=== PATIENT | female | born 1960 | race Caucasian/White ===

== ENCOUNTER → 2020-05-31 11:12 | Outpatient (BNVA) | payer OTHER, SELFPAY | PROVIDERS: PCP Internal Medicine; Referring Provider Internal Medicine; Visit Provider Hospitalist | DX: Z76.89 Persons encountering health services in other specified circumstances (principal) ==

== ENCOUNTER → 2020-06-15 15:18 | Outpatient (BNVA) | payer OTHER, SELFPAY | PROVIDERS: PCP Internal Medicine; Visit Provider Physician Assistant Medical | DX: Z76.89 Persons encountering health services in other specified circumstances (principal) | CPT/HCPCS: G0296 ==

== ENCOUNTER 2020-07-18 11:09 | Outpatient (REF) | payer OTHER, SELFPAY ==
--- NOTE | 2020-07-18 11:13 | CT_ITS ---
EXAMINATION: CT CHEST SCREENING CLINICAL INFORMATION: Nicotine dependence COMPARISON: None. TECHNIQUE: Multidetector volumetric CT imaging of the chest is performed without contrast using low dose technique. Additional 2D coronal and sagittal reformatted images and axial 3D maximum intensity projection (MIP) images are generated on the CT workstation. This CT examination was performed using dose optimization techniques as appropriate, variously including the following: *Automated exposure control *Adjustment of mA and/or kV according to patient size (this includes techniques or standardized protocols for targeted exams where dose is matched to indication/reason for exam; i.e. extremities or head) *Use of iterative reconstruction technique DLP: 71 mGy-cm FINDINGS: LUNGS: The lungs are well-expanded and clear of acute process. There are subpleural-based ground-glass attenuation, left lower lobe, best visualized on thick cuts, likely atelectasis. There is a 2 mm calcified nodule, right lower lobe, axial image 51/4. MEDIASTINUM: Thyroid lobes are symmetrical. The central trachea and the bronchi are widely patent. There are calcified lymph nodes in the right hilum. No abnormal enlarged noncalcified lymph nodes seen. Heart size and the great vessels are normal caliber. No pericardial effusion seen. PLEURA: There is no pleural effusion. No pleural mass or thickening. AXILLA: No lymphadenopathy. UPPER ABDOMEN: Visualized liver, spleen and bilateral adrenal glands are unremarkable. OSSEOUS STRUCTURES: No lytic or sclerotic process seen. There is mild spondylosis dorsal spine. CT/CT lung screening IMPRESSION: Punctate 2 mm calcified nodule, right lower lobe. Minimal subpleural atelectatic changes in the left lower lobe. ASSESSMENT: Lung-RADS category 2: Benign RECOMMENDATION: Low dose annual CT chest exam.
== END 2020-07-18 11:10 | disposition home or self-care (01) ==
LOC: HO.CT 11:09
PROVIDERS: Visit Provider Physician Assistant Medical
DX: Z12.2 Encounter for screening for malignant neoplasm of respiratory organs (principal); F17.210 Nicotine dependence, cigarettes, uncomplicated
CPT/HCPCS: 71271

== ENCOUNTER 2020-08-17 09:00 | Outpatient (REF) | payer OTHER, SELFPAY ==
--- NOTE | 2020-08-17 13:08 | PFT_ITS ---
FLOWS: FEV1 109% of predicted at 2.52 L. FVC 102% of predicted at 3.08 L. FEV1 to FVC ratio of 0.82. No bronchodilator response. LUNG VOLUMES: Total lung capacity 110% of predicted at 5.26 L. Residual volume 110% of predicted at 2.13 L. Slow vital capacity 111% of predicted at 3.13 L. Expiratory reserve volume 30% of predicted at 0.23 L. Diffusion capacity is normal. IMPRESSION: No obstructive or restrictive ventilatory defect. No bronchodilator response. Decreased expiratory reserve volume suggests extrathoracic restriction, likely secondary to abdominal obesity. Riley Watkins MD AP/MODL / [id number]
== END 2020-08-17 09:01 | disposition home or self-care (01) ==
LOC: HO.RESP 09:00
PROVIDERS: Visit Provider Hospitalist
DX: J45.909 Unspecified asthma, uncomplicated (principal)
CPT/HCPCS: 94060; 94727; 94729

== ENCOUNTER → 2020-08-31 14:05 | Outpatient (BNVA) | payer OTHER, SELFPAY | PROVIDERS: PCP Internal Medicine; Visit Provider Hospitalist ==

== ENCOUNTER → 2021-04-15 10:20 | Outpatient (BNVA) | payer OTHER, SELFPAY | PROVIDERS: PCP Internal Medicine; Visit Provider Hospitalist ==

== ENCOUNTER 2021-10-16 08:59 | Outpatient (REF) | payer OTHER, SELFPAY ==
--- NOTE | ~2021-10-16 | CT_ITS ---
EXAMINATION: CT CHEST SCREENING CLINICAL INFORMATION: 40 pack year history. Quit 1 year ago. COMPARISON: Previous exam June 2020 TECHNIQUE: Multidetector volumetric CT imaging of the chest is performed without contrast using low dose technique. Additional 2D coronal and sagittal reformatted images and axial 3D maximum intensity projection (MIP) images are generated on the CT workstation. This CT examination was performed using dose optimization techniques as appropriate, variously including the following: *Automated exposure control *Adjustment of mA and/or kV according to patient size (this includes techniques or standardized protocols for targeted exams where dose is matched to indication/reason for exam; i.e. extremities or head) *Use of iterative reconstruction technique DLP: 100 mGy-cm FINDINGS: LUNGS: The lungs are clear with no evidence of inflammation or nodules. MEDIASTINUM: There are right calcified lymph nodes The mediastinum is otherwise normal. PLEURA: There is no pleural effusion. No pleural mass or thickening. AXILLA: No lymphadenopathy. UPPER ABDOMEN: There is a 1.8 x 2.8 cm low-attenuation left adrenal lesion that is stable. The liver is low in attenuation suggestive of fatty infiltration. The spleen appears upper normal in size measuring at least 13 cm. There are small calcifications in the spleen. OSSEOUS STRUCTURES: Unremarkable. CT/CT lung screening IMPRESSION: Evidence of old granulomatous disease. ASSESSMENT: Lung-RADS category 2: Benign RECOMMENDATION: Annual low-dose chest CT follow-up recommended.
== END 2021-10-16 09:00 | disposition home or self-care (01) ==
LOC: HO.CT 08:59
PROVIDERS: PCP Internal Medicine; Visit Provider Physician Assistant Medical
DX: Z12.2 Encounter for screening for malignant neoplasm of respiratory organs (principal); Z87.891 Personal history of nicotine dependence
CPT/HCPCS: 71271

== ENCOUNTER 2021-11-11 09:59 | Outpatient (REF) | payer OTHER, SELFPAY ==
--- NOTE | 2021-11-11 14:58 | PFT_ITS ---
INDICATION: Asthma. SPIROMETRY: FEV1 to FVC 82% with an FEV1 of 2.57 L, which is 113% predicted. An FVC of 3.13 L, which is 105% predicted. No significant response to bronchodilators noted. Maximum voluntary ventilation 109% predicted. LUNG VOLUMES: Total lung capacity 102% predicted. DIFFUSION CAPACITY: DLCO 95% predicted. COMPARISONS: PFTs from 2020. IMPRESSION: No obstructive nor restrictive ventilatory defects identified. No significant response to bronchodilators noted. Normal maximum voluntary ventilation. Normal lung volumes except for decrease in the expiratory reserve volume secondary to elevated BMI. Diffusion capacity is within normal limits. When compared to 2020, there was a trend improvement in the FVC, a trend increase in the FEV1, a trend decrease in the total lung capacity, and a trend increase in the diffusion capacity. Clinical correlation warranted. MD CAT Pearson/MODDoron / [id number]
== END 2021-11-11 10:00 | disposition home or self-care (01) ==
LOC: HO.RESP 09:59
PROVIDERS: PCP Internal Medicine; Visit Provider Hospitalist
DX: J45.40 Moderate persistent asthma, uncomplicated (principal)
CPT/HCPCS: 94060; 94727; 94729

== ENCOUNTER → 2021-11-12 13:07 | Outpatient (BNVA) | payer OTHER, SELFPAY | PROVIDERS: PCP Internal Medicine; Visit Provider Hospitalist | DX: J45.909 Unspecified asthma, uncomplicated (principal) ==

== ENCOUNTER 2022-10-20 08:53 | Outpatient (REF) | payer OTHER, SELFPAY ==
--- NOTE | ~2022-10-20 | CT_ITS ---
EXAMINATION: CT CHEST SCREENING CLINICAL INFORMATION: Nicotine dependence, one pack per day for 40 years. COMPARISON: CT chest 10/16/2021. TECHNIQUE: Multidetector volumetric CT imaging of the chest is performed without contrast using low dose technique. Additional 2D coronal and sagittal reformatted images and axial 3D maximum intensity projection (MIP) images are generated on the CT workstation. This CT examination was performed using dose optimization techniques as appropriate, variously including the following: *Automated exposure control *Adjustment of mA and/or kV according to patient size (this includes techniques or standardized protocols for targeted exams where dose is matched to indication/reason for exam; i.e. extremities or head) *Use of iterative reconstruction technique DLP: 127 mGy-cm. FINDINGS: LUNGS: The lungs are well expanded and clear of acute pneumonic process. There are no pulmonary nodules, mass or consolidation. Mild atelectatic changes are seen in the lingula and the anterobasal segment left lower lobe. MEDIASTINUM: The heart size and great vessels are normal caliber. The ascending aorta measures 3.3 x 3.0 cm. No abnormal-sized mediastinal or hilar lymph nodes seen. No pericardial effusion seen. Central trachea and the bronchi widely patent. CORONARY ARTERY CALCIFICATION: None visualized on this study. PLEURA: There is no pleural effusion. No pleural mass or thickening. AXILLA: No lymphadenopathy. UPPER ABDOMEN: Visualized liver, spleen, pancreas and bilateral adrenal glands unremarkable. No radiopaque gallstones. OSSEOUS STRUCTURES: No aggressive lytic or sclerotic process seen. CT/CT lung screening IMPRESSION: Old granulomatous disease in right hilum. No pulmonary nodules seen. ASSESSMENT: Lung-RADS category 2: Benign. RECOMMENDATION: Low-dose annual CT chest.
== END 2022-10-20 08:54 | disposition home or self-care (01) ==
LOC: HO.CT 08:53
PROVIDERS: PCP Internal Medicine; Visit Provider Physician Assistant Medical
DX: Z12.2 Encounter for screening for malignant neoplasm of respiratory organs (principal); F17.210 Nicotine dependence, cigarettes, uncomplicated
CPT/HCPCS: 71271

== ENCOUNTER → 2022-12-23 09:38 | Outpatient (BNVA) | payer OTHER, SELFPAY | PROVIDERS: PCP Internal Medicine; Visit Provider Hospitalist ==

== ENCOUNTER → 2023-03-10 09:14 | Outpatient (REF) | payer OTHER, SELFPAY | LOC: HO.SL 09:14 | PROVIDERS: PCP Internal Medicine; Visit Provider Hospitalist | DX: G47.33 Obstructive sleep apnea (adult) (pediatric) (principal) | CPT/HCPCS: 95806 ==

== ENCOUNTER → 2023-03-10 09:49 | Outpatient (BNV) | payer OTHER, SELFPAY | PROVIDERS: PCP Internal Medicine; Visit Provider Internal Medicine | DX: G47.33 Obstructive sleep apnea (adult) (pediatric) (principal) | CPT/HCPCS: 95806 ==

== ENCOUNTER 2023-04-02 14:33 | Outpatient (AMB) | payer MEDICARE, SELFPAY ==
--- NOTE | 2023-04-02 14:42 | MHC.OFFVIS ---
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 Overall the patient has been doing well. She is very active with her work. She has been very busy. Unfortunately, she has not been able to quit smoking. She has had pulmonary nodules in the past and been followed closely. She has been using her rescue inhaler. She does not use it often. She denies any chest pains or significant shortness of breath. She does have an intermittent cough. 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 At that point she was unsure for was related to the Chantix but she was concerned with the passenger side effects of Chantix due to the proximity of that condition. So therefore she was prescribed Wellbutrin. She did pick up worker the prescription but she has not started yet because she was to read up on it. I did recommend that she started but to started 75 mg. In the meantime for cough with some congestion I do believe that starting her on Singulair may be a good option. Will plan to do some breathing studies and see if she needs any maintenance therapies them. In the meantime she is open to start the lung cancer screening program. 11/12/2021 the patient is here for pulmonary follow-up visit. Patient is doing better from a respiratory status. She did quit smoking which is been very helpful. She continues to be extremely busy with her work schedule. She has been significantly stressed but was able to quit smoking which is very reassuring. We did review her pulmonary function studies demonstrating some trend improvement in her all her numbers. The patient is only using a rescue inhaler. Has not really had to use a is the fact that his symptoms are significantly better. In addition to that we did review her CT scan of the chest demonstrating stable nodules. She will continue with lung cancer screening program and a yearly basis for now.In the meantime she was having stroke-like symptoms and she was taken to [facility]. 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 She then subsequently followed up with the surgery and [place] [facility] [place] She was recommended to undergo an angiogram. She is contemplating it. In addition to that she was evaluated by Neurosurgery for what appears to be a degenerative disc disease issue in her cervical area and they are recommending she undergo surgery. She is contemplating what she should do 1st. Apparently she is on aspirin and Plavix for her vertebral artery disease. She is not using any maintenance inhalers at this time. 12/23/2022 the patient is here for pulmonary follow-up visit. 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 She is having issues with her memory also with her coordination and her balance. She has had few falls. The patient is being evaluated in [place] for this. Currently no interventions are required except for medications. She did quit smoking which is reassuring. She is also having issues with daytime drowsiness. Her Athens score is elevated 11/24. The patient did have sleep apnea in the past and she had a machine around 15 years ago and she could not tolerated. Now with cerebrovascular disease and her elevated Athens score and her other constitutional symptoms it is important for her to have a repeat study. The patient is also having some difficulty swallowing. She is going to have her colonoscopy soon. She is going to talk to her GI doctor about either getting a barium swallow or doing both endoscopy and colonoscopy together. The patient also has some neuropathy issues. Primary cervical radiculopathy and also peripheral neuropathy. The patient may be a good candidate for Neurontin for sleep specially if she needs a sleep aid for tolerating CPAP at that point. 04/02/2023 the patient is here for a pulmonary follow-up visit. Since we last spoke the patient started developing a cold. Has a very deep cough. Croupy in nature. Now it has been sick for about 7 days. She tried the rescue inhaler but did not help too much. Her cough it is significant and again is D. She had called her primary care doctor was center medications to the pharmacy. In the meantime she continues to have daytime drowsiness. Athens score is worse 12/24. She did undergo a home sleep study which we personally reviewed together. She does have moderate sleep apnea and significant hypoxia spending more than left minutes below 88%. The patient needs to start CPAP therapy at this time. Will send a prescription to the local [employer] [facility]. The patient will come back in 3 months and she will bring her CPAP with her. In the meantime I do agree that she does have what appears to be laryngo tracheobronchitis. Will start her on azithromycin in addition to a Medrol pack. She also needs cough suppressant therapy. Her sleep is better overall. Will follow-up in 3 months time or if she is not better she can always call for an earlier assessment. [facility] Medical History (Updated 04/02/23 @ 19:49 by Reynold Craven MD) NICKY (obstructive sleep apnea) Pulmonary nodules Tobacco dependence Asthma Family History (Updated 05/31/20 @ 17:19 by Reynold Craven MD) Other Asthma Social History (Updated 11/12/21 @ 13:16 by Ely Pacheco [facility]) Alcohol intake: current Alcohol intake frequency: holidays/special occasions only Alcohol type: wine Patient Tobacco Use Status: Former Tobacco user Tobacco use type: Cigarette Years Smoked: 30 years Review of Systems Const Reports daytime sleepiness, Reports difficulty sleeping and Denies night sweats ENT Denies change in voice, Denies lip swelling, Denies mouth pain, Reports nasal congestion, Reports nasal discharge and Denies tongue swelling Card Denies chest pain Resp Reports chest congestion and Reports cough GI Denies abdominal pain Musc Denies no additional complaints, Reports abnormal gait and Reports tingling Neuro Reports no additional complaints, Denies Neuro-related abnormal movements, Reports abnormal gait, Reports tingling and Reports paresthesias Psych Denies no additional complaints Sylvain/Lymph Denies easy bleeding and Denies lymphadenopathy Aller/Immun Denies lip swelling and Denies tongue swelling Physical Exam Vital Signs: Last Vital Signs Pulse 83 04/02/23 14:44 Pulse Ox 96 04/02/23 14:44 Oxygen Delivery Method Room Air 04/02/23 14:44 BMI result Body Mass Index 35.4 Const General: alert Neck Neck: Yes normal visual inspection, Yes full ROM and Yes no lymphadenopathy Chest Chest palpation & inspection: normal inspection of the chest Resp Effort & Inspection: Actively coughing Quality: actively coughing Auscultation: diminished lung sounds Cardio Rate: regular rate Rhythm: regular rhythm Heart sounds: S1 normal heart sound present and S2 normal heart sound present GI Palpation (GI): Soft to palpation and nontender Auscultation: normal bowel sounds General: Yes no CVA tenderness Back/Spine/Pelvis Back: no CVA tenderness Skin General skin exam: rashes and/or lesions noted Assessment & Plan Assessment & Plan (1) Tracheobronchitis: Code(s): J40 - Bronchitis, not specified as acute or chronic (2) Asthma: Code(s): J45.909 - Unspecified asthma, uncomplicated Qualifiers: Asthma complication type: uncomplicated Asthma persistence: persistent Asthma severity: moderate Qualified Code(s): J45.40 - Moderate persistent asthma, uncomplicated (3) Pulmonary nodules: Code(s): R91.8 - Other nonspecific abnormal finding of lung field (4) Nicotine dependence, cigarettes, uncomplicated: Comment: Quit (onset 13yo, 1/2-1ppd x 47yrs, 35pyh) Code(s): F17.210 - Nicotine dependence, cigarettes, uncomplicated (5) NICKY (obstructive sleep apnea): Code(s): G47.33 - Obstructive sleep apnea (adult) (pediatric) Plan Continue respiratory therapy with [facility] as needed. Lung cancer screening program, LDCT 09/2023 start APAP Medrol taper Azithromycin x 5 days cough medicine quit smoking F/U 3 months Medications: New methylprednisolone (Medrol ([place])) 4 mg PO DAILY 6 days 6 ea 0RF azithromycin 500 mg PO DAILY 5 days 5 tabs 0RF codeine-guaifenesin 10-100 mg/5 mL 10 mL PO Q6H 10 days PRN 300 mL 0RF cough Quality Reporting (2019) Adult ([facility] 138/08/20/68) Smoking risk assessment performed?: Yes Patient Tobacco Use Status: Former Tobacco user Coding Level of Care Code Est Pt Level 4 (93701) Diagnoses Tracheobronchitis J40 Moderate persistent asthma without complication J45.40 Asthma complication type: uncomplicated Asthma persistence: persistent Asthma severity: moderate Pulmonary nodules R91.8 Nicotine dependence, cigarettes, uncomplicated F17.210 NICKY (obstructive sleep apnea) G47.33 Time Spent (min) 17
[2023-04-02 14:44] VITALS: PULSE 83; O2SAT 96; BMI 35.4
== END 2023-04-02 15:05 | disposition home or self-care (01) ==
PROVIDERS: PCP Internal Medicine; Visit Provider Hospitalist
DX: J40 Bronchitis, not specified as acute or chronic (principal); J45.40 Moderate persistent asthma, uncomplicated; R91.8 Other nonspecific abnormal finding of lung field; F17.210 Nicotine dependence, cigarettes, uncomplicated; G47.33 Obstructive sleep apnea (adult) (pediatric)
CPT/HCPCS: 99214

== ENCOUNTER → 2023-04-02 14:33 | Outpatient (BNVA) | payer MEDICARE, SELFPAY | PROVIDERS: PCP Internal Medicine; Visit Provider Hospitalist | DX: J45.40 Moderate persistent asthma, uncomplicated (principal); J40 Bronchitis, not specified as acute or chronic; R91.8 Other nonspecific abnormal finding of lung field; G47.33 Obstructive sleep apnea (adult) (pediatric); Z87.891 Personal history of nicotine dependence | CPT/HCPCS: 99212 ==

== ENCOUNTER 2023-06-30 09:33 | Outpatient (AMB) | payer MEDICARE, SELFPAY ==
--- NOTE | 2023-06-30 09:38 | A.OFFVIS_ITS ---
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 Overall the patient has been doing well. She is very active with her work. She has been very busy. Unfortunately, she has not been able to quit smoking. She has had pulmonary nodules in the past and been followed closely. She has been using her rescue inhaler. She does not use it often. She denies any chest pains or significant shortness of breath. She does have an intermittent cough. 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 At that point she was unsure for was related to the Chantix but she was concerned with the passenger side effects of Chantix due to the proximity of that condition. So therefore she was prescribed Wellbutrin. 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 I did recommend that she started but to started 75 mg. In the meantime for cough with some congestion I do believe that starting her on Singulair may be a good option. Will plan to do some breathing studies and see if she needs any maintenance therapies them. In the meantime she is open to start the lung cancer screening program. 11/12/2021 the patient is here for pulmonary follow-up visit. Patient is doing better from a respiratory status. She did quit smoking which is been very helpful. She continues to be extremely busy with her work schedule. She has been significantly stressed but was able to quit smoking which is very reassuring. We did review her pulmonary function studies demonstrating some trend improvement in her all her numbers. The patient is only using a rescue inhaler. Has not really had to use a is the fact that his symptoms are significantly better. In addition to that we did review her CT scan of the chest demonstrating stable nodules. She will continue with lung cancer screening program and a yearly basis for now.In the meantime she was having stroke-like symptoms and she was taken to [facility]. 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 She then subsequently followed up with the surgery and ultimately went back to [facility]. She was recommended to undergo an angiogram. She is contemplating it. In addition to that she was evaluated by Neurosurgery for what appears to be a degenerative disc disease issue in her cervical area and they are recommending she undergo surgery. She is contemplating what she should do 1st. Apparently she is on aspirin and Plavix for her vertebral artery disease. She is not using any maintenance inhalers at this time. 12/23/2022 the patient is here for pulluly proctor follow-up visit. 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 She is having issues with her memory also with her coordination and her balance. She has had few falls. The patient is being evaluated in [place] for this. Currently no interventions are required except for medications. She did quit smoking which is reassuring. She is also having issues with daytime drowsiness. Her Landers score is elevated 11/24. The patient did have sleep apnea in the past and she had a machine around 15 years ago and she could not tolerated. Now with cerebrovascular disease and her elevated Landers score and her other constitutional symptoms it is important for her to have a repeat study. The patient is also having some difficulty swallowing. She is going to have her colonoscopy soon. She is going to talk to her GI doctor about either getting a barium swallow or doing both endoscopy and colonoscopy together. The patient also has some neuropathy issues. Primary cervical radiculopathy and also peripheral neuropathy. The patient may be a good candidate for Neurontin for sleep specially if she needs a sleep aid for tolerating CPAP at that point. 04/02/2023 the patient is here for a [place] follow-up visit. Since we last spoke the patient started developing a cold. Has a very deep cough. Croupy in nature. Now it has been sick for about 7 days. She tried the rescue inhaler but did not help too much. Her cough it is significant and again is D. She had called her primary care doctor was center medications to the pharmacy. In the meantime she continues to have daytime drowsiness. Landers score is worse 12/24. She did undergo a home sleep study which we personally reviewed together. She does have moderate sleep apnea and significant hypoxia spending more than left minutes below 88%. The patient needs to start CPAP therapy at this time. Will send a prescription to the local [employer] company. The patient will come back in 3 months and she will bring her CPAP with her. In the meantime I do agree that she does have what appears to be laryngo tracheobronchitis. Will start her on azithromycin in addition to a Medrol pack. She also needs cough suppressant therapy. Her sleep is better overall. Will follow-up in 3 months time or if she is not better she can always call for an earlier assessment. 06/30/2023 the patient is here for a pulmo [place] follow-up visit. Overall the patient is doing very well. She recently underwent surgery for a growth on her ankle and also in her chest area. Surgery went well she tolerated anesthesia well. She continues use her rescue inhaler but typically less than 2 times a month. The patient has been doing well from a respiratory status. She also started the CPAP therapy. CPAP therapy has been affecting beneficial. The patient has been using it more than 4 hours a night although she did go away for a few days recently and did not take the machine with her. Her AHI is down to 0.9 and a mean pressure is around 9 cm of water. Her current settings are perfect. She will continue using the F30 mask. The patient is responding very well to the therapy. Her snoring and daytime sleepiness has improved dramatically with an Landers score of 5/24. Otherwise patient is doing well she does have a lung cancer screening CT scan September 2023. Will follow P year's time or sooner if she develops any new issues. [facility] Medical History (Updated 04/02/23 @ 19:49 by Reynold Craven MD) NICKY (obstructive sleep apnea) Pulmonary nodules Tobacco dependence Asthma Family History (Updated 05/31/20 @ 17:19 by Reynold Craven MD) Other Asthma Social History (Updated 11/12/21 @ 13:16 by JOANIE Pereira) Alcohol intake: current Alcohol intake frequency: holidays/special occasions only Alcohol type: wine Patient Tobacco Use Status: Former Tobacco user Tobacco use type: Cigarette Years Smoked: 30 years Review of Systems Const Denies daytime sleepiness, Denies difficulty sleeping and Denies night sweats ENT Denies change in voice, Denies lip swelling, Denies mouth pain, Reports nasal congestion, Reports nasal discharge and Denies tongue swelling Card Denies chest pain Resp Denies chest congestion and Reports cough GI Denies abdominal pain Musc Denies no additional complaints, Reports abnormal gait and Reports tingling Neuro Reports no additional complaints, Denies Neuro-related abnormal movements, Reports abnormal gait, Reports tingling and Reports paresthesias Psych Denies no additional complaints Sylvain/Lymph Denies easy bleeding and Denies lymphadenopathy Aller/Immun Denies lip swelling and Denies tongue swelling Physical Exam Vital Signs: Last Vital Signs Pulse 82 06/30/23 09:39 Pulse Ox 95 06/30/23 09:39 Oxygen Delivery Method Room Air 06/30/23 09:39 BMI result Body Mass Index 35.4 Const General: alert Neck Neck: Yes normal visual inspection, Yes full ROM and Yes no lymphadenopathy Chest Chest palpation & inspection: normal inspection of the chest Resp Auscultation: clear to auscultation bilaterally Cardio Rate: regular rate Rhythm: regular rhythm Heart sounds: S1 normal heart sound present and S2 normal heart sound present GI Palpation (GI): Soft to palpation and nontender Auscultation: normal bowel sounds General: Yes no CVA tenderness Back/Spine/Pelvis Back: no CVA tenderness Skin General skin exam: rashes and/or lesions noted Assessment & Plan Assessment & Plan (1) Asthma: Code(s): J45.909 - Unspecified asthma, uncomplicated Qualifiers: Asthma severity: moderate Asthma persistence: persistent Asthma complication type: uncomplicated Qualified Code(s): J45.40 - Moderate persistent asthma, uncomplicated (2) Pulmonary nodules: Code(s): R91.8 - Other nonspecific abnormal finding of lung field (3) Nicotine dependence, cigarettes, uncomplicated: Comment: Quit (onset 13yo, 1/2-1ppd x 47yrs, 35pyh) Code(s): F17.210 - Nicotine dependence, cigarettes, uncomplicated (4) NICKY (obstructive sleep apnea): Code(s): G47.33 - Obstructive sleep apnea (adult) (pediatric) Plan Continue respiratory therapy with EMILIA as needed. Lung cancer screening program, LDCT 09/2023 continue APAP 6-16, F30 quit smoking >2 yrs F/U 12 months Quality Reporting (2019) Adult ([facility] 138/2//69) Smoking risk assessment performed?: Yes Patient Tobacco Use Status: Former Tobacco user Coding Level of Care Code Est Pt Level 4 (72071) Diagnoses Moderate persistent asthma without complication J45.40 Asthma severity: moderate Asthma persistence: persistent Asthma complication type: uncomplicated Pulmonary nodules R91.8 Nicotine dependence, cigarettes, uncomplicated F17.210 NICKY (obstructive sleep apnea) G47.33 Time Spent (min) 16
[2023-06-30 09:39] VITALS: PULSE 82; O2SAT 95; BMI 35.4
== END 2023-06-30 10:55 | disposition home or self-care (01) ==
PROVIDERS: PCP Internal Medicine; Visit Provider Hospitalist
DX: J45.40 Moderate persistent asthma, uncomplicated (principal); R91.8 Other nonspecific abnormal finding of lung field; F17.210 Nicotine dependence, cigarettes, uncomplicated; G47.33 Obstructive sleep apnea (adult) (pediatric)
CPT/HCPCS: 99214

== ENCOUNTER → 2023-06-30 09:33 | Outpatient (BNVA) | payer MEDICARE, SELFPAY | PROVIDERS: PCP Internal Medicine; Visit Provider Hospitalist | DX: J45.40 Moderate persistent asthma, uncomplicated (principal); R91.8 Other nonspecific abnormal finding of lung field; G47.33 Obstructive sleep apnea (adult) (pediatric); Z87.891 Personal history of nicotine dependence | CPT/HCPCS: 99212 ==

== ENCOUNTER 2024-03-03 08:08 | Outpatient (REF) | payer MEDICARE, SELFPAY ==
--- NOTE | ~2024-03-03 | CT_ITS ---
EXAMINATION: CT CHEST LOW-DOSE SCREENING WITHOUT CONTRAST CLINICAL INFORMATION: Asymptomatic patient meeting criteria for lung screening. Nicotine dependence. PATIENT PACK-YEAR HISTORY: 40. Current Smoker: No. If former smoker, years since quittin. COMPARISON: None available. TECHNIQUE: Multidetector volumetric non-contrast CT imaging of the chest was obtained on a Siemens SOMATON Definition scanner using low-dose screening CT technique. Axial thin section 0.625 mm reformations in soft tissue and lung windows were obtained. Sagittal and coronal reformations were obtained. Axial MIP images were also created and reviewed. RECONSTRUCTED WIDTH: 1.25 mm x 1.[address] examination was performed using dose optimization techniques as appropriate, variously including the following: *Automated exposure control. *Adjustment of mA and/or kV according to patient size (this includes techniques or standardized protocols for targeted exams where dose is matched to indication/reason for exam; i.e. extremities or head). *Use of iterative reconstruction technique. TOTAL EXAM DLP: 75 mGy-cm CTDIvol: 2.22 mGy FINDINGS: LUNGS: Lungs bilaterally symmetrically expanded. Some mild emphysema is present along with mild bronchial thickening. No concerning focal lung nodule or mass. No effusion or pneumothorax. Central airways patent. LYMPHATIC STRUCTURES: Calcified right hilar lymph nodes are present, unchanged from prior. No mediastinal, hilar or axillary adenopathy or free fluid collection. THYROID GLAND: Unremarkable to the extent seen. CARDIOVASCULAR STRUCTURES: Aortic and heart size normal. Trace coronary artery calcifications. No pericardial effusion. UPPER ABDOMEN: There is hepatic steatosis present. Multiple calcified splenic granulomas are seen and the spleen is mildly enlarged at 13 cm. Included portions of the solid organs in the upper abdomen are unremarkable on noncontrast imaging. OSSEOUS STRUCTURES: No suspicious focal findings. SPINAL COMPRESSION: Absent. CT/CT lung screening IMPRESSION: No findings suspicious for malignancy/pulmonary nodule(s)/other. LUNG-RADS CATEGORY ASSESSMENT: 1: Negative. INCIDENTAL FINDINGS (S CATEGORY): Finding: No incidental findings. Significance Category: Normal or normal variant. RECOMMENDATION: Low dose lung CT. overall in 1 year. Visual estimate of coronary calcified plaque burden: Trace. However, this exam cannot replace a dedicated cardiac CT calcium score for accurate assessment. Electronically signed by: Waldemar Manley MD 03/04/2024 09:39 PM EDT
== END 2024-03-03 08:09 | disposition home or self-care (01) ==
LOC: HO.CT 08:08
PROVIDERS: PCP Internal Medicine; Visit Provider Nurse Practitioner Family
DX: Z12.2 Encounter for screening for malignant neoplasm of respiratory organs (principal); F17.210 Nicotine dependence, cigarettes, uncomplicated
CPT/HCPCS: 71271

== ENCOUNTER 2024-07-26 08:37 | Outpatient (AMB) | payer MEDICARE, SELFPAY ==
--- NOTE | 2024-07-26 08:44 | A.OFFVIS_ITS ---
Vital Signs 07/26/24 08:45 Height 5 ft 3 in Weight 221 lb 9.033 oz BMI 39.2 BP 120/84 Blood Pressure Location Rt brachial Position Sitting Pulse 80 Pulse Source Pulse Oximeter Pulse Oximetry (%) 94 Oxygen Delivery Method Room Air Intake Visit Reasons: asthma Allergies No Known Allergies Allergy (Verified 07/26/24 08:49) HPI Comments Details: The patient is a 64 year-old woman with a known history of asthma and tobacco dependency. Overall the patient has been doing well. She is very active with her work. She has been very busy. Unfortunately, she has not been able to quit smoking. She has had pulmonary nodules in the past and been followed closely. She has been using her rescue inhaler. She does not use it often. She denies any chest pains or significant shortness of breath. She does have an intermittent cough. 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 At that point she was unsure for was related to the Chantix but she was concerned with the passenger side effects of Chantix due to the proximity of that condition. So therefore she was prescribed Wellbutrin. 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 I did recommend that she started but to started 75 mg. In the meantime for cough with some congestion I do believe that starting her on Singulair may be a good option. Will plan to do some breathing studies and see if she needs any maintenance therapies them. In the meantime she is open to start the lung cancer screening program. 11/12/2021 the patient is here for pulmonary follow-up visit. Patient is doing better from a respiratory status. She did quit smoking which is been very helpful. She continues to be extremely busy with her work schedule. She has been significantly stressed but was able to quit smoking which is very reassuring. We did review her pulmonary function studies demonstrating some trend improvement in her all her numbers. The patient is only using a rescue inhaler. Has not really had to use a is the fact that his symptoms are significantly better. In addition to that we did review her CT scan of the chest demonstrating stable nodules. She will continue with lung cancer screening program and a yearly basis for now.In the meantime she was having stroke-like symptoms and she was taken to [facility]. 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 She then subsequently followed up with the surgery and ultimately went back to [facility]. She was recommended to undergo an angiogram. She is contemplating it. In addition to that she was evaluated by Neurosurgery for what appears to be a degenerative disc disease issue in her cervical area and they are recommending she undergo surgery. She is contemplating what she should do 1st. Apparently she is on aspirin and Plavix for her vertebral artery disease. She is not using any maintenance inhalers at this time. 12/23/2022 the patient is here for pulmonary follow-up visit. 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 She is having issues with her memory also with her coordination and her balance. She has had few falls. The patient is being evaluated in [place] for this. Currently no interventions are required except for medications. She did quit smoking which is reassuring. She is also having issues with daytime drowsiness. Her Scott score is elevated 11/24. The patient did have sleep apnea in the past and she had a machine around 15 years ago and she could not tolerated. Now with cerebrovascular disease and her elevated Scott score and her other constitutional symptoms it is important for her to have a repeat study. The patient is also having some difficulty swallowing. She is going to have her colonoscopy soon. She is going to talk to her GI doctor about either getting a barium swallow or doing both endoscopy and colonoscopy together. The patient also has some neuropathy issues. Primary cervical radiculopathy and also peripheral neuropathy. The patient may be a good candidate for Neurontin for sleep specially if she needs a sleep aid for tolerating CPAP at that point. 04/02/2023 the patient is here for a pulmonary follow-up visit. Since we last spoke the patient started developing a cold. Has a very deep cough. Croupy in nature. Now it has been sick for about 7 days. She tried the rescue inhaler but did not help too much. Her cough it is significant and again is D. She had called her primary care doctor was center medications to the pharmacy. In the meantime she continues to have daytime drowsiness. Scott score is worse 12/24. She did undergo a home sleep study which we personally reviewed together. She does have moderate sleep apnea and significant hypoxia spending more than left minutes below 88%. The patient needs to start CPAP therapy at this time. Will send a prescription to the local [employer] company. The patient will come back in 3 months and she will bring her CPAP with her. In the meantime I do agree that she does have what appears to be laryngo tracheobronchitis. Will start her on azithromycin in addition to a Medrol pack. She also needs cough suppressant therapy. Her sleep is better overall. Will follow-up in 3 months time or if she is not better she can always call for an earlier assessment. 06/30/2023 the patient is here for a pulmonary follow-up visit. Overall the patient is doing very well. She recently underwent surgery for a growth on her ankle and also in her chest area. Surgery went well she tolerated anesthesia well. She continues use her rescue inhaler but typically less than 2 times a month. The patient has been doing well from a respiratory status. She also started the CPAP therapy. CPAP therapy has been affecting beneficial. The patient has been using it more than 4 hours a night although she did go away for a few days recently and did not take the machine with her. Her AHI is down to 0.9 and a mean pressure is around 9 cm of water. Her current settings are perfect. She will continue using the F30 mask. The patient is responding very well to the therapy. Her snoring and daytime sleepiness has improved dramatically with an Scott score of 5/24. Otherwise patient is doing well she does have a lung cancer screening CT scan September 2023. Will follow P year's time or sooner if she develops any new issues. 07/26/2024 the patient is here for a pulmonary follow-up visit. Overall she is doing well. She has been having issues with her neck pain. She was recommended surgery but she really does want have surgery because she is high risk. The patient does consider other modalities. I did give her information about physiatry. As the nonsurgical modality that she can look into further. In the meantime she needs to start using her CPAP again CPAP therapy is very affecting beneficial for her. Although she stopped using it after she got back from a trip and also because of her neck pain. Although she does feel better when she uses her CPAP. Therefore she will go back to using it. She does have a rescue inhaler although she does not really needed. She also had a CAT scan part of the lung cancer screening program back in 03/18/2024 which I personally reviewed. She continues to have some calcifications of the hilar lymph nodes on the right. This are chronic and she has had them for long time. Likely secondary to a previous infection she lived in [place] for sometimes therefore at risk for endemic fungal infections such as coccidiomycosis. Otherwise patient is doing well will follow-up in a year if he in issues arise prior to that she will call for an earlier assessment. [facility] Medical History (Updated 04/02/23 @ 19:49 by Reynold Craven MD) NICKY (obstructive sleep apnea) Pulmonary nodules Tobacco dependence Asthma Family History (Updated 05/31/20 @ 17:19 by Reynold Craven MD) Other Asthma Social History Alcohol intake: current Alcohol intake frequency: holidays/special occasions only Alcohol type: wine Patient Tobacco Use Status: Former Tobacco user Tobacco use type: Cigarette Years Smoked: 30 years Review of Systems Const Denies daytime sleepiness, Denies difficulty sleeping and Denies night sweats ENT Denies change in voice, Denies lip swelling, Denies mouth pain, Reports nasal congestion, Reports nasal discharge, Reports neck pain and Denies tongue swelling Card Denies chest pain Resp Denies chest congestion and Reports cough GI Denies abdominal pain Musc Denies no additional complaints, Reports back pain, Reports neck pain and Reports tingling Neuro Reports no additional complaints, Denies Neuro-related abnormal movements, Reports tingling and Reports paresthesias Psych Denies no additional complaints Sylvain/Lymph Denies easy bleeding and Denies lymphadenopathy Aller/Immun Denies lip swelling and Denies tongue swelling Physical Exam Vital Signs: Last Vital Signs Pulse 80 07/26/24 08:45 BP 120/84 07/26/24 08:45 Pulse Ox 94 07/26/24 08:45 Oxygen Delivery Method Room Air 07/26/24 08:45 BMI result Body Mass Index 39.2 Const General: alert Neck Neck: Yes normal visual inspection, Yes full ROM and Yes no lymphadenopathy Chest Chest palpation & inspection: normal inspection of the chest Resp Auscultation: clear to auscultation bilaterally Cardio Rate: regular rate Rhythm: regular rhythm Heart sounds: S1 normal heart sound present and S2 normal heart sound present GI Palpation (GI): Soft to palpation and nontender Auscultation: normal bowel sounds General: Yes no CVA tenderness Back/Spine/Pelvis Back: no CVA tenderness Skin General skin exam: rashes and/or lesions noted Quality Reporting (2019) Adult ([facility] 138/08/20/68) Smoking risk assessment performed?: Yes Patient Tobacco Use Status: Former Tobacco user Assessment & Plan Assessment & Plan (1) Asthma: Code(s): J45.909 - Unspecified asthma, uncomplicated Category: Medical Qualifiers: Asthma complication type: uncomplicated Asthma persistence: persistent Asthma severity: moderate Qualified Code(s): J45.40 - Moderate persistent asthma, uncomplicated (2) Pulmonary nodules: Code(s): R91.8 - Other nonspecific abnormal finding of lung field Category: Medical (3) Nicotine dependence, cigarettes, uncomplicated: Comment: Quit (onset 13yo, 1/2-1ppd x 47yrs, 35pyh) Code(s): F17.210 - Nicotine dependence, cigarettes, uncomplicated Category: Medical (4) NICKY (obstructive sleep apnea): Code(s): G47.33 - Obstructive sleep apnea (adult) (pediatric) Category: Medical Plan Continue respiratory therapy with EMILIA as needed. Lung cancer screening program, LDCT 09/2024 continue APAP 6-16, F30 quit smoking >4 yrs F/U 12 months Coding Level of Care Code Est Pt Level 4 (38565) Diagnoses Moderate persistent asthma without complication J45.40 Asthma complication type: uncomplicated Asthma persistence: persistent Asthma severity: moderate Pulmonary nodules R91.8 Nicotine dependence, cigarettes, uncomplicated F17.210 NICKY (obstructive sleep apnea) G47.33 Time Spent (min) 17
[2024-07-26 08:45] VITALS: BP 120/84; PULSE 80; O2SAT 94; BMI 39.2
--- OUTSIDE RECORDS SUMMARY | 2024-07-26 08:56 | XMS_ITS | Clinical Summary ---
Author Organization [facility] Address [address] [place] [address] Phone Care Team Providers Care Intranet Specialist Name Role Phone John Sharp MD Primary Care Provider Encounters Date Type Department Care Team Description 05/29/2024 8:41 AM EST - 05/29/2024 11:59 PM EST Hospital Encounter [facility] MRI [address] [place] [id number] Neuropathy Discharge Disposition: Home or Self Care from Last 3 Months Social History Tobacco Use Types Packs/Day Years Used Date Smoking Tobacco: Former Sex and Gender Information Value Date Recorded Sex Assigned at Female 01/21/2023 8:00 AM EDT Gender Identity Female 01/21/2023 8:00 AM EDT Sexual Orientation Not on file Job Start Date Occupation Industry Not on file Not on file Not on file Obstetrics History Plan of Treatment Health Maintenance Due Date Last Done Comments Breast Cancer Screening 1960 DTaP,Tdap,and Td Vaccines (1 - Tdap) 1977 Cholesterol Screening (Lipid Panel) 05/27/2022 Colorectal Cancer Screening: Colonoscopy 05/27/2022 Depression Screening 05/27/2022 Hepatitis C Screening 05/27/2022 Medicare Annual Wellness Visit 05/27/2022 Osteoporosis Screening (Bone Density Screening) 05/27/2022 Social Influencers of Health Screening 05/27/2022 Falls Risk Assessment 2023 COVID-19 Vaccine ( season) 2024 03/20/2022, 12/04/2021, 04/11/2021, Additional history exists Influenza Vaccine (#1) 2024 , 05/18/2021, 05/24/2018, Additional history exists Hypertension/CHF/CAD Annual BMP Blood Test 03/05/2025 03/05/2024 RSV Immunization Patients 60+ Years Old (1 - 1-dose 75+ series) 2033 Zoster Vaccines Completed 03/26/2022, 12/04/2021 Pneumococcal Vaccine: 65+ Years Completed 04/28/2023, 07/21/2020 HIB Vaccines Aged Out No longer eligi ble based on patient's age to complete this topic HPV Vaccines Aged Out No longer eligi ble based on patient's age to complete this topic Hepatitis A Vaccines Aged Out No long er eligible based on patient's age to complete this topic Hepatitis B Vaccines Aged Out No long er eligible based on patient's age to complete this topic IPV Vaccines Aged Out No longer eligi ble based on patient's age to complete this topic MMR Vaccines Aged Out No longer eligi ble based on patient's age to complete this topic Meningococcal ACWY Vaccine Aged Out N o longer eligible based on patient's age to complete this topic RSV Immunization Patients Under 20 months Aged Out No longer eligible based on patient's age to complete this topic Varicella Vaccines Aged Out No longer eligible based on patient's age to complete this topic Procedures Procedure Name Priority Date/Time Associated Diagnosis Comments MR CERVICAL SPINE WO CONTRAST Routine 05/29/2024 9:46 AM EST Neuropathy from Last 3 Months Results * MR Cervical Spine wo Contrast (05/29/2024 9:46 AM EST) Anatomical Region Laterality Modality C-spine, Spine Magnetic Resonan ce 05/30/2024 1:38 PM EST Impressions 05/30/2024 1:45 PM EST Multilevel degenerative changes are noted and are detailed fully above. -------- FINAL REPORT -------- Dictated By: Kuldip Hong Dictated Date: 05/30/2024 13:38 ET Assigned Physician: Kuldip Hong Reviewed and Electronically Signed By: Kuldip Hong Signed Date: 05/30/2024 13:45 ET Workstation ID: [id number] Transcribed By: Self Edit Transcribed Date: 05/30/2024 13:38 ET Narrative 05/30/2024 1:45 PM EST MRI of the cervical spine without contrast INDICATION: Cervicalgia COMPARISON: MRI cervical spine January 2022 TECHNIQUE: Multiple MRI sequences were performed of the cervical spine without contrast. FINDINGS: Bones: No acute deformity. ??Mild degenerative endplate edema is noted at C4-5. Alignment: Training of cervical lordosis is likely partially due to positioning and partially due to degenerative changes. Spinal cord: Cord appears normal in signal. Soft tissues: Soft tissues appear normal. Cervical Spine Levels C2-C3: Normal without evidence of significant stenosis. C3-C4: Normal without evidence of significant stenosis. C4-C5: Degenerative disc osteophyte with mild spinal canal stenosis. ??Degenerative changes cause moderate left and mild right-sided foraminal stenosis. C5-C6: Degenerative disc osteophyte with right paracentral disc protrusion. ??Findings cause at least mild spinal canal stenosis. ??There is contact on the cervical cord without irregular cord signal. ??Degenerative changes contribute to moderate bilateral foraminal stenosis. C6-C7: Degenerative disc osteophyte with mild spinal canal stenosis. ??Degenerative changes contribute to moderate right-sided and mild left-sided foraminal stenosis. C7-T1: Degenerative disc changes contribute to moderate bilateral foraminal stenosis. ??No significant spinal canal stenosis. Procedure Note Kuldip Hong MD - 05/30/2024 MRI of the cervical spine without contrast INDICATION: Cervicalgia COMPARISON: MRI cervical spine January 2022 TECHNIQUE: Multiple MRI sequences were performed of the cervical spinewithout contrast. FINDINGS: Bones: No acute deformity. Mild degenerative endplate edema is noted atC4-5. Alignment: Training of cervical lordosis is likely partially due topositioning and partially due to degenerative changes. Spinal cord: Cord appears normal in signal. Soft tissues: Soft tissues appear normal. Cervical Spine Levels C2-C3: Normal without evidence of significant stenosis. C3-C4: Normal without evidence of significant stenosis. C4-C5: Degenerative disc osteophyte with mild spinal canal stenosis.Degenerative changes cause moderate left and mild right-sided foraminalstenosis. C5-C6: Degenerative disc osteophyte with right paracentral discprotrusion. Findings cause at least mild spinal canal stenosis. There iscontact on the cervical cord without irregular cord signal. Degenerativechanges contribute to moderate bilateral foraminal stenosis. C6-C7: Degenerative disc osteophyte with mild spinal canal stenosis.Degenerative changes contribute to moderate right-sided and mildleft-sided foraminal stenosis. C7-T1: Degenerative disc changes contribute to moderate bilateralforaminal stenosis. No significant spinal canal stenosis. IMPRESSION: Multilevel degenerative changes are noted and are detailed fully above. -------- FINAL REPORT -------- Dictated By: Kuldip Hong Dictated Date: 05/30/2024 13:38 ET Assigned Physician: Kuldip Hong Reviewed and Electronically Signed By: Kuldip Hong Signed Date: 05/30/2024 13:45 ET Workstation ID: [id number] Transcribed By: Self Edit Transcribed Date: 05/30/2024 13:38 ET John Sharp MD IMG MRI PROCEDURES from Last 3 Months Care Teams Intranet Specialist Relationship Specialty Start Date End Date John Sharp MD [address] [place] [id number] PCP - General Internal Medicine 11/15/18
--- OUTSIDE RECORDS SUMMARY | 2024-07-26 08:56 | XMS_ITS | Data Portability ---
Author Organization [facility], [address] Address [address] [place] [address] Assessment No assessment recorded. Plan of Treatment Reminders Order Date Submit Date Provider Last Modified By Organization Details Last Modified Time Details Appointments None recorded. Lab urinalysis, dipstick 2022 023 [facility], [address] [place], [address], 08:54:14 culture, urine 2022 023 [facility], [address] [place] [address], [place], [address], 14:05:53 Referral None recorded. Procedures None recorded. Surgeries None recorded. Imaging None recorded. Medication Orders cephalexin 500 mg capsule 2022 023 [id number], [address] [place], [address], 08:54:14 Patient TargetsNo targets recorded. Patient Instructions Encounter Date Encounter Id Patient Instructions Last Modified By Organization Details Last Modified Time 12/26/2022 [id number] cellulitis: care instructions [email or web address] Not available 12/26/2022 08:54:11 skin abscess: ca re instructions Not available 12/26/2022 08:54:11 We recommend you get a repeat urinalysis in 2 weeks to ensure that any abnormalities have resolved. If urine abnormalities persist, you will likely need further testing or treatment. We will contact you within 3 to 5 days with the results of your lab test. If you have not heard back from us within that time frame, please feel free to contact our office regarding your results. Go to the Emergency Department immediately if your symptoms worsen or if you develop new symptoms that concern you. Drink plenty of fluids You should follow-up with your PCP in 4-5 days, or at any time if your condition does not improve or worsens. Any acute change should prompt a visit to the nearest Emergency Department. Not available 12/26/2022 08:53:16 Cellulitis is a skin infection caused by bacteria, most often strep or staph. It often occurs after a break in the skin from a scrape, cut, bite, or puncture, or after a rash. Cellulitis may be treated without doing tests to find out what caused it. But your doctor may do tests, if needed, to look for a specific bacteria, like methicillin-resist ant Staphylococcus aureus (MRSA). The doctor has checked you carefully, but problems can develop later. If you notice any problems or new symptoms, get medical treatment right away. How can you care for yourself at home? Take your antibiotics as directed. Do not stop taking them just because you feel better. You need to take the full course of antibiotics. Prop up the infected area on pillows to reduce pain and swelling. Try to keep the area above the level of your heart as often as you can. If your doctor told you how to care for your infection, follow your doctor's instructions. If you did not get instructions, follow this general advice: Wash the area with clean water 2 times a day. Don't use hydrogen peroxide or alcohol, which can slow healing. You may cover the area with a thin layer of petroleum jelly, such as Vaseline, and a non-stick bandage. Apply more petroleum jelly and replace the bandage as needed. Be safe with medicines. Take pain medicines exactly as directed. If the doctor gave you a prescription medicine for pain, take it as prescribed. If you are not taking a prescription pain medicine, ask your doctor if you can take an xdli-nan-bimpsis medicine. Not available 12/26/2022 08:52:36 Reason for Referral None Reported. Results Created Date Observation Date Name Description Value Unit Range Abnormal Flag Note LastModifiedBy Organization Detail LastModifiedTime 12/27/1912/2812/28/2022 URINE CULTU RE, ROUTI NE urine culture, routine FINAL REPORT Not Available [facility] ([facility]) [address] [facility], [place], [address], 12/28/2022 14:05:53 12/27/19 23 12/28/2022 URINE CULTU RE, ROUTI NE result 1 NO GROWTH Not Available [facility] ([facility]) [address] [facility], [place], [address], 12/28/2022 14:05:53 12/27/19 23 12/26/2022 urina lysis , dipst ick Unknown Analyte Normal = light yellow Not Available [facility] [address] [place], [address], 12/26/2022 08:38:51 12/27/19 23 12/26/2022 urina lysis , dipst ick Unknown Analyte Yellow Not Available [facility] [address] [place], [address], 12/26/2022 08:38:51 12/27/19 23 12/26/2022 urina lysis , dipst ick Unknown Analyte Normal = clear Not Available [facility] [address] [place], [address], 12/26/2022 08:38:51 12/27/19 23 12/26/2022 urina lysis , dipst ick Unknown Analyte Clear Not Available [facility] [address] [place], [address], 12/26/2022 08:38:51 12/27/19 23 12/26/2022 urina lysis , dipst ick Unknown Analyte Normal = negati ve Not Available [facility] [address] [place], [address], 12/26/2022 08:38:51 12/27/1912/26/2022 urina lysis , dipst ick Unknown Analyte Negati ve Not Available [facility] [address] [place], [address], 12/26/2022 08:38:51 12/27/19 23 12/26/2022 urina lysis , dipst ick Unknown Analyte Normal = Negati ve Not Available [facility] [address] [place], [address], 12/26/2022 08:38:51 12/27/19 23 12/26/2022 urina lysis , dipst ick Unknown Analyte Negati ve Not Available [facility] [address] [place], [address], 12/26/2022 08:38:51 12/27/1912/26/2022 urina lysis , dipst ick Unknown Analyte Normal = Negati ve Not Available [facility] [address] [place], [address], 12/26/2022 08:38:51 12/27/1912/26/2022 urina lysis , dipst ick Unknown Analyte Negati ve Not Available [facility] [address] [place], [address], 12/26/2022 08:38:51 12/27/19 23 12/26/2022 urina lysis , dipst ick Unknown Analyte Normal = 1.010, 1.015, 1.020 Not Available [facility] [address] [place], [address], 12/26/2022 08:38:51 12/27/19 23 12/26/2022 urina lysis , dipst ick Unknown Analyte 1.015 Not Available [address] [place] [address] [address] [place], [address], 12/26/2022 08:38:51 12/27/19 23 12/26/2022 urina lysis , dipst ick Unknown Analyte Normal = Negati ve Not Available [facility] [address] [place], [address], 12/26/2022 08:38:51 12/27/19 23 12/26/2022 urina lysis , dipst ick Unknown Analyte Trace- intact Not Available [facility] [address] [place], [address], 12/26/2022 08:38:51 12/27/1912/26/2022 urina lysis , dipst ick Unknown Analyte Normal = 6.5, 7.0, 7.5, 8.0 Not Available [facility] [address] [place], [address], 12/26/2022 08:38:51 12/27/1912/26/2022 urina lysis , dipst ick Unknown Analyte 5.5 Not Available [address] [place] [address] [address] [place], [address], 12/26/2022 08:38:51 12/27/19 23 12/26/2022 urina lysis , dipst ick Unknown Analyte Normal = Negati ve Not Available [facility] [address] [place], [address], 12/26/2022 08:38:51 12/27/19 23 12/26/2022 urina lysis , dipst ick Unknown Analyte Negati ve Not Available [facility] [address] [place], [address], 12/26/2022 08:38:51 12/27/19 23 12/26/2022 urina lysis , dipst ick Unknown Analyte Normal = 0.2, 1.0 Not Available [facility] [address] [place], [address], 12/26/2022 08:38:51 12/27/1912/26/2022 urina lysis , dipst ick Unknown Analyte 0.2 E.U./d L Not Available [facility] [address] [place], [address], 12/26/2022 08:38:51 12/27/19 23 12/26/2022 urina lysis , dipst ick Unknown Analyte Normal = Negati ve Not Available [facility] [address] [place], [address], 12/26/2022 08:38:51 12/27/1912/26/2022 urina lysis , dipst ick Unknown Analyte Negati ve Not Available [facility] [address] [place], [address], 12/26/2022 08:38:51 12/27/1912/26/2022 urina lysis , dipst ick Unknown Analyte Normal = Negati ve Not Available [facility] [address] [place], [address], 12/26/2022 08:38:51 12/27/1912/26/2022 urina lysis , dipst ick Unknown Analyte Trace Not Available [address] [facility] [address] [place], [address], 12/26/2022 08:38:51 Result Notes None recorded. 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 Procedures Surgical History Date Name Laterality Status Provider Name and Address Organization Details Recorded Time colonoscopy completed LIZZY ZAYELENAKHAI PA - [facility] 12/26/2022 08:24:46 Imaging Results None recorded. Procedure Notes None recorded. Medical Equipment None Reported. Allergies No known drug allergies Medications Name Sig Start Date Stop Date Status Note LastModified by Organization Details LastModified Time cephalexin 500 mg capsule Take 1 capsule every 8 hours by oral route with meals for 7 days. 2022 active Not Available Not Available Not Avai lable Lovenox active Not Available Not Avail able Not Available clopidogrel active Not Available Not A vailable Not Available rosuvastatin active Not Available Not Available Not Available olmesartan 40 mg-amlodipine 5 mg-hydrochloro thiazide 12.5 mg tablet Take 1 tablet every day by oral route. active Not Available Not Available No t Available Vitals Date Recorded Body height Provider Name an d Address Organization Details Last Updated DateTime 12/26/2022 160.02 cm LIZZY ZAYELENAKHAI PA - [facility] 12/26/2022 08:20:20 Date Recorded Body mass index (BMI) Body weight Provider Name and Address Organization Details Last Updated DateTime 12/26/2022 36.3 kg/m2 49901.44 g LIZZY ZAYELENAINNAJOSE JUAN PA - [facility] 12/26/2022 08:20:27 Date Recorded Pain severity - 0-10 verbal numeric rating [Score] - Reported Provider Name and Address Organization Details Last Updated DateTime 12/26/2022 2 LIZZY CHAWLA PA - [facility] 12/26/2022 08:20:32 Date Recorded Respiratory rate Provider Name a nd Address Organization Details Last Updated DateTime 12/26/2022 19 /min LIZZY CHAWLA PA - [facility] 12/26/2022 08:20:33 Date Recorded Oxygen saturation Oxygen saturation in Arterial blood by Pulse oximetry Provider Name and Address Organization Details Last Updated DateTime 12/26/2022 96 % 96 % LIZZY CHAWLA PA - [facility] 12/26/2022 08:26:47 Date Recorded Heart rate Provider Name an d Address Organization Details Last Updated DateTime 12/26/2022 71 /min LIZZY CHAWLA PA - [facility] 12/26/2022 08:26:54 Date Recorded Body temperature Provider Name a nd Address Organization Details Last Updated DateTime 12/26/2022 97.9 [degF] LIZZY CHAWLA PA - [facility] 12/26/2022 08:27:00 Date Recorded Systolic blood pressure Diastolic blood pressure Provider Name and Address Organization Details Last Updated DateTime 12/26/2022 112 mm[Hg] 68 mm[Hg] LIZZY CHAWLA PA - [facility] 12/26/2022 08:26:43 Social History Question Answer Notes LastModified by Organizat ion Details LastModified Time Tobacco Smoking Status Former Smoker LIZZY CHAWLA null, PA - [facility] 12/26/2022 08:24:09 What Is Your Level Of Alcohol Consumption? Occasional Information not available 12/26/2022 Are You Currently Employed? Yes [employer] Information not available 12/26/2022 Do You Use Any Illicit Or Recreational Drugs? No Information not available 12/26/2022 Are You Currently In School? No Information not available 12/26/2022 Sex: Unknown Functional Status None recorded. Mental Status None recorded. Family History Relationship Description Onset Age of this Age Resolved Age Notes LastModified by Organization Details LastModified Time Father No current problems or disability [email or web address] Not available 11/29 08:24:25 Mother No current problems or disability [email or web address] Not available 11/29 08:24:25 Medical History No medical history recorded. Gynecological History Statement/Question Response Is there any chance of ? No Obstetrics History GPAL:G 0 P 0 0 0 0 Past Encounters Encounter ID Performer Location Encounter Start Date Encounter Closed Date Diagnosis/Indication Diagnosis SNOMED-CT Code Diagnosis ICD10 Code Diagnosis [place] [id number] [place] [address] [place] [address] 12/26/2022 08:04:56 12/26/2022 08:56:23 Cellulitis of abdominal wall 08568890 L03.311 Acute urin esthela tract infection 216516341 N39.0 Health Concerns Section Related Observation LastModified by Organization Detai ls LastModified Time None Recorded Concern Status LastModified by Organization Details LastModified Time None Recorded Advance Directives Directive None Recorded Payers Encounter Date Sequence Insurance Name Policy Number Policy Crooks Covered Member ID Crooks Member ID Guarantor Name 12/26/2022 1 [facility]LY [facility] (O) Estela Zambrano [id number] Estela Zambrano Notes Date Note Type Note Provider Name and Address Organization Details Recorded Time 12/26/2022 text/html Skin Redness UCReported bypatient.Locatio n:abdomen Quality:painful;e rythematous;raise d;warm Severity:worsenin g Onset:gradual onset Alleviating factors:nothing gives relief Symptoms:no fever; no nausea; no vomiting;swelling Jeevan Goldstein NP [address] [place], [address], [place] - [facility] 12/26/2022 08:57:11 OBGyn Episode No OBEpisode recorded.
== END 2024-07-26 09:19 | disposition home or self-care (01) ==
PROVIDERS: PCP Internal Medicine; Visit Provider Hospitalist
DX: J45.40 Moderate persistent asthma, uncomplicated (principal); R91.8 Other nonspecific abnormal finding of lung field; F17.210 Nicotine dependence, cigarettes, uncomplicated; G47.33 Obstructive sleep apnea (adult) (pediatric)
CPT/HCPCS: 99214

== ENCOUNTER → 2024-07-26 08:37 | Outpatient (BNVA) | payer MEDICARE, SELFPAY | PROVIDERS: PCP Internal Medicine; Visit Provider Hospitalist | DX: J45.40 Moderate persistent asthma, uncomplicated (principal); R91.8 Other nonspecific abnormal finding of lung field; G47.33 Obstructive sleep apnea (adult) (pediatric); F17.210 Nicotine dependence, cigarettes, uncomplicated | CPT/HCPCS: 99212 ==